=== PATIENT | female | born 1970 | race American Indian/Alaskan Native ===

== ENCOUNTER 2019-04-28 09:33 | Emergency (ER) | payer SELFPAY ==
[2019-04-28] MEDS ORDERED: NACL 0.9% 1000 ML 1,000 ML IV ONE (10:20)
[2019-04-28] MEDS ORDERED: MORPHINE IV ONE (10:20)
[2019-04-28] MEDS ORDERED: ZOFRAN IV ONE (10:20)
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
[2019-04-28 10:49] LABS: Basophils % (Auto) 0.4 % (0.0-1.8); Eosinophils % (Auto) 0.1 % (0.0-4.3); Hemoglobin 10.3 gm/dl (10.1-14.3); Lymphocytes # (Auto) 2.2 K/mm3 (1.2-5.4); Lymphocytes % (Auto) 27.8 % (13.4-35.0); Mean Corpuscular HGB Conc 33 % (30-34); Mean Corpuscular Volume 81 fl (79-97); Platelet Count 328 K/mm3 (140-440); Red Blood Count 3.82 M/mm3 (3.65-5.03); Red Cell Distribution Width 15.2 % (13.2-15.2)
[2019-04-28 11:09] LABS: Alanine Aminotransferase 30 units/L (7-56); Albumin 4.1 g/dL (3.9-5); BUN/Creatinine Ratio 20; Blood Urea Nitrogen 18 mg/dL (7-17); Calcium 8.9 mg/dL (8.4-10.2); Hemolysis Index 10
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
[2019-04-28] MEDS ORDERED: ZITHROMAX ONE (13:59)
[2019-04-28] MEDS ORDERED: ROCEPHIN ONE (13:59)
[2019-04-28] MEDS ORDERED: XYLOCAINE 1% 20 mL ONE (14:00)
[2019-04-28 14:10] LABS: Bacteria,Urine 2+ /HPF (Negative); Bilirubin,Urine NEG (Negative); Blood,Urine SM (Negative); Color,Urine Yellow (Yellow); Mucus,Urine 2+ /HPF; Protein,Urine <15 mg/dL mg/dL (Negative); Urobilinogen,Urine < 2.0 mg/dL (<2.0)
[2019-04-28 14:14] LABS: HCG Qualitative,Urine Negative (Negative)
[2019-04-28 14:23] VITALS: BP 140/80
== END 2019-04-28 14:27 | disposition home or self-care (01) ==
LOC: ED 09:33 → EEVIPCON 09:33 → ED 14:27
DX: S09.90XA Unspecified injury of head, initial encounter (principal); S20.219A Contusion of unspecified front wall of thorax, initial encounter; S30.1XXA Contusion of abdominal wall, initial encounter; S20.229A Contusion of unspecified back wall of thorax, initial encounter; H11.32 Conjunctival hemorrhage, left eye; I10 Essential (primary) hypertension; Z86.2 Personal history of diseases of the blood and blood-forming organs and certain disorders involving the immune mechanism; Y04.2XXA Assault by strike against or bumped into by another person, initial encounter; Y93.89 Activity, other specified; Y92.89 Other specified places as the place of occurrence of the external cause; Y99.8 Other external cause status
CPT/HCPCS: 36415; 70450; 71260; 74177; 80053; 81001; 81025; 83690; 85025; 96374; 96375; 99284; J2270; J2405; J7030; Q9967; J0696